=== PATIENT | male | born 1940 | race Two or more races ===

== ENCOUNTER 2019-10-18 06:07 | Day surgery (SDC) | payer OTHER | END 2019-10-18 09:30 | disposition home or self-care (01) | LOC: AMB-ENDOS 06:07 → ADM 13:00 | PROVIDERS: ATTEND Surgery | DX: K62.89 Other specified diseases of anus and rectum (principal); K64.8 Other hemorrhoids; K57.30 Diverticulosis of large intestine without perforation or abscess without bleeding ==